=== PATIENT | female | born 1985 | race Hispanic/Latino ===

== ENCOUNTER 2018-04-28 17:03 | Emergency (ER) | payer MEDICAID ==
[2018-04-28] MEDS ORDERED: CLINDAMYCIN HCL 150 MG CAP ONE (17:25)
[2018-04-28] MEDS ORDERED: TETANUS/DIPHTHERIA TOXOID [ADULT] 0.5 ML VIAL IM ONE (17:27)
[2018-04-28] MEDS ORDERED: SULFAMETHOX-TMP DS 800/160 TAB ONE (17:27)
== END 2018-04-28 18:00 | disposition home or self-care (01) ==
LOC: EDH 17:03
DX: S61.451A Open bite of right hand, initial encounter (principal); L08.9 Local infection of the skin and subcutaneous tissue, unspecified; Z85.3 Personal history of malignant neoplasm of breast; W55.01XA Bitten by cat, initial encounter; Y93.89 Activity, other specified; Y92.89 Other specified places as the place of occurrence of the external cause; Y99.8 Other external cause status; Z88.0 Allergy status to penicillin
CPT/HCPCS: 90471; 90714

== ENCOUNTER 2024-11-05 04:19 | Emergency (ER) | payer BC, MEDICAID ==
[~2024-11-05] VITALS: Ht 160 cm; Wt 86.2 kg
[~2024-11-05 04:19] MED LIST: METH-662 PO; NAPR-1506 PO
[2024-11-05 04:58] LABS: BASOPHILS # (AUTO) 0.08 K/uL (0.00-0.20); BASOPHILS % (AUTO) 0.7 % (0.0-5.0); EOSINOPHILS # (AUTO) 0.18 K/uL (0.00-0.70); EOSINOPHILS % (AUTO) 1.6 % (0.0-8.0); HEMATOCRIT 43.7 % (36-48); IMMATURE GRANULOCYTE ABSOLUTE 0.07 K/uL (0-1); LYMPHOCYTES # (AUTO) 1.7 K/uL (1.0-4.8); LYMPHOCYTES % (AUTO) 15.2 % (21.0-51.0); MEAN CORPUSCULAR HGB CONC 34.6 g/dL (32.0-36.0); MEAN CORPUSCULAR VOLUME 86.7 fL (79-99); MONOCYTES # (AUTO) 0.7 K/uL (0.1-1.0); MONOCYTES % (AUTO) 6.3 % (3.0-13.0); NEUTROPHILS # (AUTO) 8.6 K/uL (1.8-7.7); NEUTROPHILS % (AUTO) 75.6 % (40.0-77.0); PLATELET COUNT (AUTO) 262 K/uL (130-400); RED BLOOD CELL COUNT(AUTO) 5.04 MIL/uL (4.00-5.50); RED CELL DISTRIBUTION WIDTH 12.6 % (11.0-15.5); WHITE BLOOD COUNT (AUTO) 11.4 K/uL (4.8-10.8)
[2024-11-05] MEDS: morPHINE 4 MG SYG IVP ONE (05:00)
[2024-11-05] MEDS: NITROGLYCERIN 0.4 MG SL TAB SL PRN (05:00)
[2024-11-05 05:07] LABS: INR 0.94 (0.85-1.15); PROTHROMBIN TIME 10.2 SEC (9.6-11.6)
[2024-11-05 05:08] LABS: CREATININE 0.8 mg/dL (0.5-1.0); POTASSIUM 4.3 mmol/L (3.5-5.1)
[2024-11-05] MEDS: hydrALAZine 20MG/ML VIAL IV ONE (05:13)
[2024-11-05 05:24] LABS: B-TYPE NATRIURETIC PEPTIDE 14 pg/mL (0-100)
[2024-11-05] MEDS: ondanSETRON 4MG INJ IVP ONE (05:25)
--- NOTE | 2024-11-05 06:44 | ERN ---
General Chief Complaint: Multiple Complaints Stated Complaint: LEFT NECK PAIN, SHOULDER, ARM Time Seen by MD: 04:24 History of Present Illness Initial Comments Mrs Escalera is a very pleasant 38-year-old female with significant past medical history of morbid obesity essential hypertension who comes in today with a chief complaint of neck pain and chest pain. Patient reports that she has been given a diagnosis of essential hypertension. She states that she has been having ongoing jaw and neck pain. Patient denies any other symptoms. Patient reports that she has never experienced these symptoms before. Allergies: Coded Allergies: Penicillins (Unverified Allergy, Unknown, 06/30/21) Home Meds Active Scripts Naproxen (Naproxen) 500 Mg Tablet.dr, 500 MG PO BIDMEALS for pain, #20 TAB 0 Refills Prov:GLORIA GUERRA MD 06/30/21 Methocarbamol (Robaxin) 750 Mg Tab, 750 MG PO Q6HPRN PRN for muscle spasm, #30 TAB Prov:GLORIA GUERRA MD 06/30/21 Past Medical History Past Medical History: Hypertension Past Surgical History: Other Surgical History Other: LEFT LUMPECTOMY Female( History) LMP: Oct 22, 2024 ROS Dictation Constitutional: Negative for fever,chills, and weight loss Eyes: Negative for injury, pain,redness, and discharge ENT: Positive for neck pain Cardiovascular: Negative for chest pain, palpitations, and edema Respiratory: Negative for shortness of breath, cough, and wheezing, Abdomen/GI: Negative for abdominal pain, nausea, vomiting, diarrhea, and constipation Back: Negative for injury and pain : Negative for injury, bleeding and discharge MS/Extremity: Negative for injury and deformity Skin: Negative for rash, and discoloration Neuro: Negative for headache, weakness, numbness, tingling, and seizure Psych: Negative for suicide ideation, homicidal ideation, and hallucinations Physical Exam Physical Exam Dictation General: awake, alert, NAD Head/Face: Normocephalic, Eyes: PERRL, EOMI, vision at baseline ENT: oral cavity clear Neck: Trachea midline, supple Cardiovascular: RRR, normal S1/S2 Respiratory: CTAB, no respiratory distress Abdomen: Soft, non-tender, non-distended Skin: Warm, dry, normal turgor, no rash MS/Extremity: Pulses equal Neuro: COAx4, GCS 15, strength 5/5 Results Laboratory and Microbiology Lab and Micro Result Laboratory Tests Test 11/05/24 04:47 11/05/24 05:13 11/05/24 06:58 White Blood Count 11.4 K/uL (4.8-10.8) H Red Blood Count 5.04 MIL/uL (4.00-5.50) Hemoglobin 15.1 g/dL (12.0-16.0) Hematocrit 43.7 % (36-48) Mean Corpuscular Volume 86.7 fL (79-99) Mean Corpuscular Hemoglobin 30.0 pg (27.0-33.0) Mean Corpuscular Hemoglobin Concent 34.6 g/dL (32.0-36.0) Red Cell Distribution Width 12.6 % (11.0-15.5) Platelet Count 262 K/uL (130-400) Mean Platelet Volume 11.3 fL (7.5-10.5) H Immature Granulocyte % (Auto) 0.6 % (0-1) Neutrophils (%) (Auto) 75.6 % (40.0-77.0) Lymphocytes (%) (Auto) 15.2 % (21.0-51.0) L Monocytes (%) (Auto) 6.3 % (3.0-13.0) Eosinophils (%) (Auto) 1.6 % (0.0-8.0) Basophils (%) (Auto) 0.7 % (0.0-5.0) Neutrophils # (Auto) 8.6 K/uL (1.8-7.7) H Lymphocytes # (Auto) 1.7 K/uL (1.0-4.8) Monocytes # (Auto) 0.7 K/uL (0.1-1.0) Eosinophils # (Auto) 0.18 K/uL (0.00-0.70) Basophils # (Auto) 0.08 K/uL (0.00-0.20) Absolute Immature Granulocyte (auto 0.07 K/uL (0-1) Nucleated Red Blood Cells 0.0 % (0.0-0.19) Prothrombin Time 10.2 SEC (9.6-11.6) Prothromb Time International Ratio 0.94 (0.85-1.15) Sodium Level 139 mmol/L (136-145) Potassium Level 4.3 mmol/L (3.5-5.1) Chloride Level 104 mmol/L (101-111) Carbon Dioxide Level 25 mmol/L (21-32) Blood Urea Nitrogen 13 mg/dL (7-18) Creatinine 0.8 mg/dL (0.5-1.0) Glomerular Filtration Rate Calc 96 mL/min (>90) Random Glucose 129 mg/dL (70-105) H Total Calcium 9.3 mg/dL (8.5-10.1) B-Type Natriuretic Peptide 14 pg/mL (0-100) Troponin I < 0.05 ng/mL (0.00-0.05) Urine Color YELLOW (YELLOW) Urine Appearance CLEAR (CLEAR) Urine pH 5.5 (5.0-8.0) Urine Specific [place] 1.012 (1.001-1.031) Urine Protein NEGATIVE mg/dL (NEGATIVE) Urine Glucose (UA) NEGATIVE mg/dL (NEGATIVE) Urine Ketones NEGATIVE mg/dL (NEGATIVE) Urine Occult Blood NEGATIVE (NEGATIVE) Urine Nitrate NEGATIVE (NEGATIVE) Urine Bilirubin NEGATIVE mg/dL (NEGATIVE) Urine Urobilinogen 0.2 mg/dL (0.2-1.0) Urine Leukocyte Esterase NEGATIVE [place]/uL Urine HCG, Qualitative NEGATIVE (NEGATIVE) MDM MDM: Differential diagnosis: There are no social concerns with this patient. Prescription drug management Prescriptions will include: Medical management and examination interpretation discussions were had by me with other qualified healthcare professionals as indicated for the patient's care. ED Course Orders Procedure Category Date Status Time Cbc With Differential LAB 11/05/24 Complete 04:49 Prothrombin Time With LAB 11/05/24 Complete INR 04:49 B-Type Natriuretic LAB 11/05/24 Complete Peptide 04:49 Chest 1vw RAD 11/05/24 Resulted 04:49 Nitroglycerin 0.4mg PHA 11/05/24 In Process Sl Tab (Nitrostat) 05:00 Morphine 4mg Syg PHA 11/05/24 Complete (Morphine 4mg Syg) 05:00 Urinalysis Profile LAB 11/05/24 Complete 04:49 Troponin Poc Order LAB 11/05/24 Complete Only 04:49 Basic Metabolic Panel LAB 11/05/24 Complete 04:49 Hydralazine 20mg Inj PHA 11/05/24 Complete (Apresoline 20mg In 05:30 Ondansetron 4mg Inj PHA 11/05/24 Complete (Zofran 4mg Inj) 05:30 Ct Neck Soft Tiss CT 11/05/24 Resulted W/Contrast 06:30 ,Urine Test LAB 11/05/24 Complete 06:58 Iohexol (Omnipaque) PHA 11/05/24 Complete 07:53 Current Medications Medications (Trade) Dose Ordered Sig/Jony Route PRN Reason Start Time Stop Time Status Last Admin Dose Admin Hydralazine HCl (APRESOLine 20MG INJ) 10 mg ONCE ONCE IV 11/05/24 05:30 11/05/24 05:31 DC 11/05/24 05:13 Iohexol (Omnipaque) 35,000 mg STK-MED ONCE IV 11/05/24 07:53 11/05/24 07:53 DC Morphine Sulfate (morPHINE 4MG SYG) 4 mg ONCE ONCE IVP 11/05/24 05:00 11/05/24 05:01 DC 11/05/24 05:00 Nitroglycerin (Nitrostat) 0.4 mg Q5M PRN SL CHEST PAIN 11/05/24 05:00 11/05/24 05:00 Ondansetron HCl (zoFRAN 4MG INJ) 4 mg ONCE ONCE IVP 11/05/24 05:30 11/05/24 05:31 DC 11/05/24 05:25 Vital Signs Date Time Temp Pulse Resp B/P (MAP) Pulse Ox O2 Delivery O2 Flow Rate FiO2 11/05/24 07:19 98.8 91 20 132/82 100 Room Air* 0 11/05/24 05:21 98.8 94 20 111/74 98 Room Air* 0 11/05/24 05:02 98.8 97 20 161/107 98 Room Air* 0 11/05/24 04:27 98.8 100 20 147/101 98 Room Air* 0 11/05/24 04:21 96.8 90 16 149/103 100 Room Air DX & DISP Disposition: Discharge Departure Impression: Primary Impression: Neck pain Condition: Stable Referrals: SELF,REFERRAL (PCP) DAVID BARON MD Nov 05, 2024 06:44 TIEN DUFFY MD Nov 05, 2024 08:36
[2024-11-05 07:29] LABS: ADD UA MICROSCOPIC NO; APPEARANCE,URINE CLEAR (CLEAR); BILIRUBIN,URINE NEGATIVE (NEGATIVE); COLOR,URINE YELLOW (YELLOW); GLUCOSE, URINE (UA) NEGATIVE (NEGATIVE); KETONES,URINE NEGATIVE (NEGATIVE); LEUKOCYTE ESTERASE ,URINE NEGATIVE Leu/uL (NEGATIVE); NITRATE,URINE NEGATIVE (NEGATIVE); OCCULT BLOOD,URINE NEGATIVE (NEGATIVE); PH,URINE 5.5 (5.0-8.0); PROTEIN,URINE NEGATIVE (NEGATIVE); UROBILINOGEN,URINE 0.2 mg/dL (0.2-1.0)
[2024-11-05] MEDS ORDERED: IOHEXOL 350 MG/ML 100ML INFUS..BTL IV ONE (07:53)
--- NOTE | 2024-11-05 08:21 | HMCIMG ---
CT NECK SOFT TISS W/CONTRAST REASON: NECK PAIN COMPARISON: None TECHNIQUE: Axial images are obtained from skull base through the thoracic inlet following IV contrast, 100 cc Omnipaque 350. FINDINGS: Skull base structures appear unremarkable. Tongue, tonsillar fossa and parapharyngeal soft tissues appear unremarkable, no evidence of abscess. Salivary glands appear normal. There is no cervical lymphadenopathy. Larynx, thyroid and trachea appear normal. Lung apices are clear. Muscles and subcutaneous soft tissues appear unremarkable as well. IMPRESSION: 1. Negative postcontrast CT neck.
--- NOTE | 2024-11-05 08:29 | HMCIMG ---
CHEST 1VW REASON: SOB COMPARISON: None. FINDINGS: Single view of the chest was obtained. Lungs are clear. Heart size is normal. There is no pulmonary vascular congestion. Mediastinum and bony thorax appear unremarkable. There is a right-sided chest port in place. IMPRESSION: 1. No acute finding.
[2024-11-05] MEDS ORDERED: KETO10TA2 PO (08:46)
[2024-11-05 08:58] VITALS: BP 126/78; PULSE 90; RESP 20; TEMP 98.8; O2SAT 97
== END 2024-11-05 09:07 | disposition home or self-care (01) ==
LOC: EDH 04:19
DX: R07.9 Chest pain, unspecified (principal); M54.2 Cervicalgia; I10 Essential (primary) hypertension; E66.01 Morbid (severe) obesity due to excess calories; Z88.0 Allergy status to penicillin
CPT/HCPCS: 99284; 96374; 70491; 96375; 71045; 84484; 80048; 83880; 85025; 85610; 81003; 81025; 36415; J0360; J2405; Q9967